=== PATIENT | female | born 1955 | race Caucasian/White ===

== ENCOUNTER 2017-04-23 08:17 | Outpatient (CLI) | payer OTHER ==
[2017-04-23 09:00] LABS: eGFR (African) > 60; eGFR (Non-African) > 60
== END 2017-04-23 08:18 ==
LOC: LAB 08:17
PROVIDERS: ATTEND Family Medicine
DX: I10 Essential (primary) hypertension (principal); R73.9 Hyperglycemia, unspecified
CPT/HCPCS: 36415; 80053; 80061; 83036

== ENCOUNTER 2018-06-05 07:01 | Outpatient (CLI) | payer SELFPAY ==
[2018-06-05 09:28] LABS: eGFR (Non-African) > 60
== END 2018-06-05 07:09 ==
LOC: LAB 07:01
PROVIDERS: ATTEND Family Medicine
DX: I10 Essential (primary) hypertension (principal); E11.9 Type 2 diabetes mellitus without complications; Z79.4 Long term (current) use of insulin
CPT/HCPCS: 36415; 80053; 80061; 83036